=== PATIENT | male | born 1985 | race Caucasian/White ===

== ENCOUNTER 2017-10-11 05:24 | Day surgery (SDC) | payer OTHER ==
[~2017-10-11] VITALS: Ht 180.3 cm; Wt 103.4 kg
--- NOTE | ~2017-10-11 | PATH ---
[facility] [address] [address] PATHOLOGY RPT PROCEDURE Name: JANA MORFIN Room #: [place] [facility] [place].#: [id number] Admission: 10/11/17 Date of : 89 Discharge: 10/11/17 Report #: [id number] Path Case #: [id number] [facility] Accession Number: [id number] . 01 Material submitted: . PILONIDAL CYST . 01 Clinical history: . Pilonidal cyst . 02 Diagnosis: Pilonidal cyst, excision: - Moderate acute and chronic inflammation along with a giant cell reaction, compatible with reaction to a prior cyst. - Overlying squamous epithelium showing reactive changes. (IUV:mgr; 10/13/17) QRQ/10/13/2017 . 02 Electronically signed: . Betzy Jasmine MD, Pathologist NPI- [id number] . 01 Gross description: . The specimen is received in formalin, labeled "Jana Morfin, pilonidal cyst". Received is an ellipse of pale aldridge skin with attached yellow-aldridge fibroadipose tissue measuring 6.4 x 2.7 x 2.5 cm in greatest dimensions. The epidermal surface displays a circular defect measuring 0.1 x 0.1 cm, which probes to a depth of 1.1 cm. Sectioning reveals a linear sinus tract measuring 1.6 cm in length. The specimen is submitted representatively in cassette A1. (CAA; 10/12/2017) QAC/QAC . 02 Pathologist provided ICD-10: L05.91 . 02 CPT . 993229 Performed at: [address], [place] [id number] MD Nico Good MD Phone: [phone] Performed at: [address] [id number] MD Betzy Jasmine MD Phone: [phone]
--- NOTE | ~2017-10-11 | O ---
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 PROCEDURES PERFORMED: Pilonidal cystectomy. SURGEON: Emmett Herrmann M.D. ANESTHESIA: General anesthesia in the prone position. COMPLICATIONS: None. ESTIMATED BLOOD LOSS: 20 mL. DESCRIPTION OF PROCEDURE: With the patient in the prone position under general anesthesia, a timeout was performed. The sacral area was prepped and draped in sterile fashion. IV antibiotic was administered. Lacrimal probe was probed at the secondary side of the infection, slightly left of the midline. This was closed and a probe would not go in. The probe was then passed from the midline indentation and this did go right up into the area to left of the midline into the sinus tract. Marking pen was then used to draw out the withdrawal an ellipse surrounding the 2 openings. The center indentation where the hair likely has grown in from and then the secondary opening. With this about 1.5 cm-2 cm length is about 8 cm. After incising through the skin and subcutaneous tissue, cautery was used for hemostasis. Cautery was used to dissect the tissue both on the left and then on the right side. This was then taken down to just above the presacral fascia. The entire sinus tract was removed. Irrigation was performed, hemostasis obtained. A 2-0 PDS was used to close the deeper layers. A 3-0 PDS was used to close the subcutaneous tissue, the more superficial layer, more superficial subcutaneous tissue. Skin was then closed with 4-0 nylon in interrupted fashion. The wound came together well. No bleeding was identified. Antibiotic ointment, 4 x 4, OpSite used for dressing. By: [id number] Emmett Herrmann MD /nt
[~2017-10-11 05:24] MED LIST: CENTRUM SILVER1 EAC2 PO; FISH OIL 1,001000 M2 PO; OSTEO BI-FLEX1 EAC3 PO
[2017-10-11 13:33] VITALS: BP 141/77
[2017-10-11] MEDS ORDERED: NORCO 5-325 TA1 EACH PO (15:24)
[2017-10-11 15:41] VITALS: BP 141/77
== END 2017-10-11 16:25 | disposition home or self-care (01) ==
LOC: OR 05:24 → TBA 05:25 → OR 10:35
DX: L05.91 Pilonidal cyst without abscess (principal); Z98.890 Other specified postprocedural states; Z87.891 Personal history of nicotine dependence; Z88.0 Allergy status to penicillin; Z88.8 Allergy status to other drugs, medicaments and biological substances; Z79.891 Long term (current) use of opiate analgesic
CPT/HCPCS: 50010; 50101; 50386; 50403; 56525; 56526; 62110; 62900; 70005